=== PATIENT | male | born 1945 | race Caucasian/White ===

== ENCOUNTER 2024-09-10 19:27 | Emergency (ER) | payer MEDICARE, SELFPAY ==
[2024-09-10 19:31] VITALS: BMI 28.2
[2024-09-10 20:12] VITALS: BP 155/82; PULSE 84; RESP 18; TEMP 36.9; O2SAT 96
--- NOTE | 2024-09-10 20:16 | XR_ITS ---
Examination: Hand, right 3 views Technique: Hand AP, oblique, lateral 3 views Date and time of exam: September 10, [id number] hrs. Indications: Spider bite to the hand 4 days ago with redness swelling and pain Findings: Moderate osteopenia No acute fracture No dislocation No cortical bone destruction No opaque foreign body Impression: No fracture or cortical bone destruction
--- NOTE | 2024-09-10 20:17 | PD.EDRME ---
Rapid Medical Screening Exam RME Arrival date/time: 09/10/24 19:27 79 yo m present to Ed for possible spiderbite to hand that gotten worsen I have greeted and performed a focused initial assessment of this patient. A comprehensive ED assessment and evaluation of the patient, analysis of all test results, and completion of the medical decision making process will be conducted by additional ED providers. Chief Complaint: Hand/Wrist Problems Time Seen by Provider: 09/10/24 20:03 Vital signs: Vital Signs Temperature 98.5 F 09/10/24 20:12 Pulse Rate 84 09/10/24 20:12 Respiratory Rate 18 09/10/24 20:12 Blood Pressure 155/82 H 09/10/24 20:12 Pulse Oximetry (%) 96 09/10/24 20:12 Oxygen Delivery Method Room Air 09/10/24 20:12
[2024-09-10 20:56] LABS: Basophils % (Auto) 1 % (0-2.5); Eosinophils # (Auto) 0.1 Thou/mm3 (0.0-0.5); Eosinophils % (Auto) 4 % (0-10); Hematocrit 44.1 % (41.0-53.0); Hemoglobin 15.2 g/dL (13.5-16.0); Immature Granulocytes % (Auto) 1 % (0-0); Immature Granulocytes Auto 0.02 Thou/mm3 (0.00-0.00); Lactate (Lactic Acid) 2.4 mMol/L (0.4-2.0); Lymphocytes % (Auto) 26 % (10-50); Mean Corpuscular HGB Conc 34.5 g/dl (31.0-37.0); Mean Corpuscular Hemoglobin 32.3 pg (25.0-35.0); Mean Corpuscular Volume 94 fL (80-100); Monocytes # (Auto) 0.3 Thou/mm3 (0.0-0.8); Monocytes % (Auto) 8 % (0-12); Neutrophils # (Auto) 2.3 Thou/mm3 (1.8-7.7); Neutrophils % (Auto) 61 % (37-80); Nucleated Red Blood Cell % 0 /100 WBC (0); Platelet Count 90 Thou/mm3 (140-440); RDW Standard Deviation 48.2 fL (35.1-43.9); White Blood Count 3.8 Thou/mm3 (3.8-10.6)
[2024-09-10 21:10] LABS: Sed Rate (ESR) 8 mm/hr (0-20)
[2024-09-10 21:28] VITALS: BP 162/91; PULSE 84; RESP 19; TEMP 36.9; O2SAT 95
[2024-09-10 21:36] LABS: Alanine Aminotransferase 53 U/L (10-49); Albumin, Serum 3.5 gm/dL (3.4-4.8); Albumin/Globulin Ratio 1.4 (1.2-2.2); Alkaline Phosphatase 216 U/L (46-116); Anion Gap 10 (7-16); Aspartate Amino Transferase 58 U/L (0-34); BUN/Creatinine Ratio 15 Ratio (12-20); Bilirubin,Total 0.9 mg/dL (0.3-1.2); Blood Urea Nitrogen 18 mg/dL (9-23); C-Reactive Protein < 0.5 mg/dL (0.0-0.9); Calcium 8.9 mg/dL (8.3-10.6); Calcium (Corrected) 9.3 mg/dL (8.5-10.1); Carbon Dioxide 22.9 mMol/L (20.0-31.0); Chloride 105 mMol/L (98-107); Creatinine (Component) 1.2 mg/dL (0.6-1.3); Estimated Creatinine Clearance 59.5 mL/min (>60); Globulin 2.5 gm/dL (2.3-3.5); Glucose 337 mg/dL (74-106); Osmolality,Calculated 290 (275-295); Potassium 4.1 mMol/L (3.4-5.1); Sodium 138 mMol/L (136-145); eGFR > 60 See Note
[2024-09-10 21:41] LABS: Procalcitonin 0.08 ng/ml (0.0-0.49)
--- NOTE | 2024-09-10 22:01 | PD.EDHAND ---
Upper Extremity Injury RME/HPI General Chief Complaint: Hand/Wrist Problems Stated Complaint: poss infection R hand Time Seen by Provider: 09/10/24 20:03 Arrival date/time: 09/10/24 19:27 RME / HPI RME / HPI narrative: 79-year-old male patient came in for evaluation regarding redness and discoloration right middle finger dorsal aspect. Patient possibly bitten by a spider about 4 days ago and since then patient noticed redness and swelling dorsal aspect of the right third finger. Patient is denying any pain to the palmar aspect of the fingers and hand. Able to bend and extend the finger without any limitation. Patient denies any fever. Patient took leftover ciprofloxacin total of 2 doses already. Denies any other complaints. Related Data Previous Rx's ?Medication ?Instructions ?Recorded ciprofloxacin HCl 500 mg tablet 500 mg PO BID #14 tabs 03/09/23 (Cipro) tamsulosin 0.4 mg capsule (Flomax) 0.4 mg PO QDAY #30 caps 03/09/23 clindamycin HCl 300 mg capsule 300 mg PO TID #21 caps 09/10/24 Allergies Allergy/AdvReac Type Severity Reaction Status Date / Time Penicillins Allergy Severe RASH/HIVES/ Unverified 09/10/24 19:29 Review of Systems Review of Systems Narrative Review of Systems: Review of system reviewed and within normal limits except mentioned in HPI ED Exam Narrative Physical exam: VITAL SIGNS: Reviewed. GENERAL APPEARANCE: Alert and interactive, follows commands, no acute distress, HEAD AND FACE: Non-traumatic. ENT: PERRL, pink conjunctivitis, eyelid no trauma, Mucous membrane moist. NECK: Supple, nontender, no nuchal rigidity. CHEST: No tenderness, no crepitus, no paradoxical movement, no retractions. LUNGS: Clear, well ventilated, symmetric, no rales, no wheezing, no ronchi, no stridor, good breath sounds bilaterally. HEART: Regular rate, regular rhythm, no murmur, no gallops. ABDOMEN: Soft, positive bowel sounds, nondistended, no guarding, nontender, no rebound, no masses, RECTAL: Deferred. GENITAL: Deferred. NEUROLOGICAL: Gross motor function intact sensory function intact, Appropriate for age. MUSCULOSKELETAL: low back nontender, full range of motion. EXTREMITIES: Redness and discoloration right middle finger dorsal aspect involving the macular area. No swelling nonfluctuant, nontender, full range of motion. LYMPHATICS: Deferred. Course Quality Measures none Orders Category Date Time Status IV [Insert IV] STAT Care 09/10/24 20:17 Active XR hand comp RT min 3V Stat Exams 09/10/24 20:16 Completed Blood Culture (Lab) Stat Lab 09/10/24 20:30 Received CBC Stat Lab 09/10/24 20:34 Completed CMP [Comprehensive Metabolic Panel] Stat Lab 09/10/24 20:34 Completed CRP [C-Reactive Protein] Stat Lab 09/10/24 20:34 Completed ESR [Sed Rate (ESR)] Stat Lab 09/10/24 20:34 Completed Lactic Acid [Lactate (Lactic Acid)] Stat Lab 09/10/24 20:34 Results Procalcitonin Stat Lab 09/10/24 20:34 Completed Clindamycin/Ns 600 mg Ivpb [Cleocin/Ns Ivpb] Med 09/10/24 22:00 Discontinued 600 mg in 50 ml IV X1 TET,DIP/PERT AC (Adult)-Tdap [Boostrix Adult (Tdap) Med 09/10/24 22:02 Discontinued Vacc] 0.5 ml IMI .ONCE ONE Vital Signs Vital signs: Vital Signs Temperature 98.5 F 09/10/24 20:12 Pulse Rate 84 09/10/24 20:12 Respiratory Rate 18 09/10/24 20:12 Blood Pressure 155/82 H 09/10/24 20:12 Pulse Oximetry (%) 96 09/10/24 20:12 Oxygen Delivery Method Room Air 09/10/24 20:12 Extremity Injury MDM Narrative MDM Narrative:: 79-year-old male patient came in for evaluation regarding redness and discoloration right middle finger dorsal aspect. Patient possibly bitten by a spider about 4 days ago and since then patient noticed redness and swelling dorsal aspect of the right third finger. Patient is denying any pain to the palmar aspect of the fingers and hand. Able to bend and extend the finger without any limitation. Patient denies any fever. Patient took leftover ciprofloxacin total of 2 doses already. Denies any other complaints. Patient received Boostrix and clindamycin IV in the emergency room. Patient's x-ray of the finger showed no acute abnormality. Patient's CBC also showed no leukocytosis CMP unremarkable lactic acid slightly elevated 2.4. Pro-Ciro is normal Clinically patient can be managed as outpatient, patient was advised to come back in 2 days for reevaluation. Patient data External records reviewed:: None Clinical information provided by:: patient Social determinants that could affect healthcare access:: none Patient has the following chronic illnesses:: None How is presenting disease/condition affected by chronic disease/condition?: no chronic disease Evaluation data The following diagnostics were reviewed and interpreted by me:: lab results, radiology exam(s) and other (specify) Lab and/or radiology exams considered but not ordered:: None Interpretation Summary: See results in MDM Medications / Prescriptions Medications or Prescriptions considered but not ordered:: None Medication administrations:: Medication Administration History Discontinued Medications Diphtheria/Tetanus/Acell Pertussis (Diphth,Pertuss(Acell),Tet Vac 0.5 Ml Syr- Adult) 0.5 ml IMi .ONCE ONE Stop: 09/10/24 22:03 Last Admin: 09/10/24 22:19 Dose: 0.5 ml Documented By: EF Clindamycin/Sodium Chloride (Cleocin/Ns Ivpb) 600 mg in 50 mls @ 100 mls/hr IV X1 ONE Stop: 09/10/24 22:29 Last Admin: 09/10/24 22:13 Dose: 100 mls/hr Documented By: EF Clindamycin and Boostrix Consultations Consultation(s) initiated? (list below): No Diagnosis Upper Extremity Injury Differential Diagnosis: other (Hand cellulitis, spider bite, insect bite) Most likely diagnosis given after review of the tests above:: HAnd cellulitis Admission Indicated Admission indicated?: not indicated Admission Request Was there a request for admission?: No Disposition Plan Disposition Plan: Discharge Discharge Attestation Discharge Attestation: The patient was given an opportunity to ask questions and understood the discharge instructions. Discharge instructions specifically effects, indications for sooner follow up or return to the emergency department, and the expected course of current diagnosis. Patient condition: Stable Discharge Plan Plan Patient Disposition: HOME (Self Care) Disposition Comment: stable Prescriptions/Referrals Prescriptions/Med Rec: New clindamycin HCl 300 mg capsule 300 mg PO TID Qty: 21 0RF No Action tamsulosin [Flomax] 0.4 mg capsule 0.4 mg PO QDAY Qty: 30 1RF ciprofloxacin HCl [Cipro] 500 mg tablet 500 mg PO BID Qty: 14 0RF Referrals: Niecy Kee MD [Primary Care Provider] - In 1 week Problem List Clinical Impression: Cellulitis of hand Patient/Caregiver Discharge Instructions Discharge Activity: activity as tolerated Education Materials: ED Cellulitis Additional Instructions: Thank you for the opportunity for serving you today. You are stable for discharged . You are advised to: Follow-up with your PCP in 1 to 2 days Return to emergency room in 2 days for evaluation Return to ED for worsening of symptoms Increase oral fluids Take medication as prescribed Print Language: [place]orese Stand Alone Forms: Sandra Award Info., Patient Portal Info Letter PA/FUNCTIONAL CONSULTANT Supervising Physician PA/FUNCTIONAL CONSULTANT Supervising Physician: MD Erica
[2024-09-10] MEDS: CLINDAMYCIN/NS 600 MG IVPB 600 MG/50 ML BAG 100 MG IV (22:13)
[2024-09-10] MEDS: DIPHTH,PERTUSS(ACELL),TET VAC 0.5 ML SYR- ADULT IMi (22:19)
[2024-09-10 22:57] VITALS: BP 138/83; PULSE 80; RESP 17; TEMP 36.9; O2SAT 96
[2024-09-10 23:47] LABS: Reflex Lactate? Y
== END 2024-09-10 22:58 | disposition home or self-care (01) ==
PROVIDERS: Physician Assistant; Emergency Provider Emergency Medicine; PCP Internal Medicine
DX: L03.113 Cellulitis of right upper limb (principal)
CPT/HCPCS: 36415; 73130; 80053; 83605; 84145; 85025; 85652; 86140; 87040; 90471; 90715; 96365; 99284; S0077; J0737

== ENCOUNTER → 2024-12-09 | Outpatient (CLI) | payer MEDICARE, BC, SELFPAY ==
[2024-12-09 14:26] LABS: Basophils # (Auto) 0.0 Thou/mm3 (0.0-0.2); Basophils % (Auto) 1 % (0-2.5); Eosinophils # (Auto) 0.1 Thou/mm3 (0.0-0.5); Eosinophils % (Auto) 4 % (0-10); Hematocrit 43.7 % (41.0-53.0); Hemoglobin 15.5 g/dL (13.5-16.0); Immature Granulocytes Auto 0.01 Thou/mm3 (0.00-0.00); Lymphocytes # (Auto) 1.0 Thou/mm3 (1.0-4.8); Lymphocytes % (Auto) 30 % (10-50); Mean Corpuscular HGB Conc 35.5 g/dl (31.0-37.0); Mean Corpuscular Hemoglobin 32.7 pg (25.0-35.0); Mean Corpuscular Volume 92 fL (80-100); Monocytes # (Auto) 0.3 Thou/mm3 (0.0-0.8); Monocytes % (Auto) 9 % (0-12); Neutrophils # (Auto) 1.9 Thou/mm3 (1.8-7.7); Neutrophils % (Auto) 57 % (37-80); Nucleated Red Blood Cell # 0.00 Thou/mm3 (0.00-0.00); Nucleated Red Blood Cell % 0 /100 WBC (0); Platelet Count 93 Thou/mm3 (140-440); RDW Standard Deviation 47.5 fL (35.1-43.9); Red Blood Count 4.74 Miln/mm3 (4.50-5.90); White Blood Count 3.3 Thou/mm3 (3.8-10.6)
[2024-12-09 14:35] LABS: Glucose Estimated Average 237 mg/dL (80-131); Hemoglobin A1C 9.9 % Hgb (4.8-6.0)
[2024-12-09 14:47] LABS: Alanine Aminotransferase 60 U/L (10-49); Albumin, Serum 3.7 gm/dL (3.4-4.8); Albumin/Globulin Ratio 1.4 (1.2-2.2); Alkaline Phosphatase 192 U/L (46-116); Anion Gap 10 (7-16); Aspartate Amino Transferase 66 U/L (0-34); BUN/Creatinine Ratio 15 Ratio (12-20); Bilirubin,Total 1.5 mg/dL (0.3-1.2); Blood Urea Nitrogen 15 mg/dL (9-23); Calcium 8.9 mg/dL (8.3-10.6); Calcium (Corrected) 9.1 mg/dL (8.5-10.1); Carbon Dioxide 26.0 mMol/L (20.0-31.0); Cardiac Risk Estimate 6.1 RATIO (4.0-6.7); Chloride 103 mMol/L (98-107); Cholesterol 243 mg/dL (132-200); Creatinine (Component) 1.0 mg/dL (0.6-1.3); Free T4 (Free Thyroxine) 0.90 ng/dL (0.89-1.76); Globulin 2.7 gm/dL (2.3-3.5); Glucose 291 mg/dL (74-106); HDL Cholesterol 40 mg/dL (40-60); LDL Cholesterol,Calculated 137 mg/dL (0-130); Osmolality,Calculated 289 (275-295); Potassium 4.5 mMol/L (3.4-5.1); Sodium 139 mMol/L (136-145); Thyroid Stimulating Hormone 2.39 uIU/mL (0.55-4.78); Total Protein 6.4 gm/dL (5.7-8.2); Triglycerides 332 mg/dL (30-150); eGFR > 60 See Note
[2024-12-09 15:30] LABS: Hepatitis C Antibody Non Reactive (Non React); Vitamin D 25 Hydroxy Total 23.4 ng/mL (7.3-40.2)
[2024-12-09 15:48] LABS: Creatinine MALB Rnd Ur 126 mg/dL (30-125); Microalbumin, Random Urine < 3 mg/L (0-300)
[2024-12-15 07:06] LABS: PSA, Free 0.25 ng/mL; PSA, Total 0.5 ng/mL (< OR = 4.0)
== END | disposition home or self-care (01) ==
PROVIDERS: PCP Nurse Practitioner Family; Referring Provider Nurse Practitioner Family; Visit Provider Nurse Practitioner Family
DX: E11.65 Type 2 diabetes mellitus with hyperglycemia (principal)
CPT/HCPCS: 36415; 80053; 80061; 82043; 82306; 82570; 83036; 84153; 84154; 84439; 84443; 85025; 86803

== ENCOUNTER → 2025-03-15 | Outpatient (CLI) | payer MEDICARE, BC, SELFPAY ==
[2025-03-15 14:41] LABS: Glucose Estimated Average 243 mg/dL (80-131); Hemoglobin A1C 10.1 % Hgb (4.8-6.0)
== END | disposition home or self-care (01) ==
LOC: COPL 13:33
PROVIDERS: PCP Nurse Practitioner Family; Referring Provider Nurse Practitioner Family; Visit Provider Nurse Practitioner Family
DX: E11.65 Type 2 diabetes mellitus with hyperglycemia (principal)
CPT/HCPCS: 36415; 83036

== ENCOUNTER 2025-03-28 08:56 | Inpatient (IN) | payer MEDICARE, BC, SELFPAY ==
[2025-03-28 08:59] VITALS: BP 147/74; PULSE 80; RESP 18; TEMP 36.5; O2SAT 97
[2025-03-28 09:04] VITALS: PULSE 94; RESP 18; O2SAT 97; BMI 27.5
--- NOTE | 2025-03-28 09:21 | XR_ITS ---
Examination: Left hip AP, lateral, AP pelvis 3 views Technique: Hip AP lateral, AP pelvis, 3 views Exam date and time: March 28, 2025, 0933 hours INDICATIONS: Patient fell yesterday with injury to the hip, hip pain FINDINGS: No acute left hip fracture or hip dislocation Right hip intact Nondisplaced acute appearing fractures left superior and inferior pubic rami IMPRESSION: Recommend CT pelvis follow-up to confirm nondisplaced acute fractures left superior and inferior pubic rami.
--- NOTE | 2025-03-28 09:28 | PD.EDLOWEX ---
Lower Extremity Injury RME/HPI General Stated Complaint: FALL Time Seen by Provider: 03/28/25 09:22 Source: patient Arrival date/time: 03/28/25 08:56 80-year-old male with a history of BPH presents to the emergency room with a chief complaint of left-sided hip pain after ground-level fall that occurred yesterday afternoon. Patient denies any head trauma or injuries anywhere else to the body. Mode of arrival: ambulatory Limitations: no limitations Related Data Previous Rx's ?Medication ?Instructions ?Recorded ciprofloxacin HCl 500 mg tablet 500 mg PO BID #14 tabs 03/09/23 (Cipro) tamsulosin 0.4 mg capsule (Flomax) 0.4 mg PO QDAY #30 caps 03/09/23 clindamycin HCl 300 mg capsule 300 mg PO TID #21 caps 09/10/24 Allergies Allergy/AdvReac Type Severity Reaction Status Date / Time Penicillins Allergy Severe RASH/HIVES/ Verified 03/28/25 09:13 Review of Systems Review of Systems Systems Reviewed: All systems reviewed, normal except as documented Constitutional Constitutional: Reports system reviewed and no additional complaints, except as documented, Denies fatigue, Denies fever(s), Denies headache(s) and Denies weakness Eyes Eyes: Reports system reviewed and no additional complaints, except as documented, Denies blurry vision and Denies change in vision ENT Ears, Nose, Mouth, and Throat: Reports system reviewed and no additional complaints, except as documented, Denies otalgia, Denies headache(s), Denies nasal congestion, Denies throat swelling and Denies vertigo Cardiovascular Cardiovascular: Reports system reviewed and no additional complaints, except as documented, Denies chest pain, Denies dyspnea and Denies dyspnea on exertion Respiratory Respiratory: Reports system reviewed and no additional complaints, except as documented, Denies chest congestion, Denies cough, Denies dyspnea, Denies dyspnea on exertion and Denies wheezing Gastrointestinal Gastrointestinal: Reports system reviewed and no additional complaints, except as documented, Denies abdominal pain, Denies cramping, Denies nausea and Denies vomiting Genitourinary Genitourinary: Reports system reviewed and no additional complaints, except as documented, Denies dysuria and Denies hematuria Musculoskeletal Musculoskeletal: Reports system reviewed and no additional complaints, except as documented, Reports arthralgias, Denies back pain, Reports joint swelling and Reports limited range of motion Integumentary/Breasts Skin/Breast: Reports system reviewed and no additional complaints, except as documented and Denies wounds Neurologic Neurologic: Reports system reviewed and no additional complaints, except as documented, Denies confusion, Denies headache(s), Denies lack of coordination, Denies vertigo and Denies weakness Psychiatric Psychiatric: Reports system reviewed and no additional complaints, except as documented, Denies anxiety, Denies confusion, Denies depression, Denies paranoia, Denies suicidal ideation and Denies tactile hallucinations Endocrine Endocrine: Reports system reviewed and no additional complaints, except as documented and Denies fatigue Hematologic/Lymphatic Hematologic/Lymphatic: Reports system reviewed and no additional complaints, except as documented and Denies lymphadenopathy Allergic/Immunologic Allergic/Immunologic: Reports system reviewed and no additional complaints, except as documented, Denies throat swelling, Denies urticaria and Denies wheezing ED Exam General Limitations: Present no limitations General appearance: Present alert and in no apparent distress Head Head exam: Present atraumatic Eye Eye exam: Present normal appearance, PERRL and EOMI ENT ENT exam: Present normal exam, normal oropharynx and mucous membranes moist Neck Neck exam: Present normal inspection, full ROM and trachea midline Chest Chest inspection: Present normal inspection and symmetric chest wall rise Respiratory Respiratory exam: Present normal lung sounds bilaterally Cardiovascular Cardiovascular exam: Present regular rate, normal rhythm and normal heart sounds Abdominal Exam Abdominal exam: Present soft and normal bowel sounds Extremities Exam Extremities exam: Present normal inspection and full ROM Expanded Lower Extremity Exam Hip/Pelvis exam: Present tenderness; Absent full ROM, swelling, crepitus, external rotation, internal rotation or pelvis stable Upper leg exam: Present normal inspection Knee exam: Present normal inspection Lower leg exam: Present normal inspection Ankle exam: Present normal inspection Gait: unable to bear weight Back Exam Back exam: Present normal inspection and full ROM Neurological Exam Neurological exam: Present alert, oriented X3 and CN II-XII intact Psychiatric Psychiatric exam: Present normal affect and normal mood Skin Skin exam: Present warm, dry, intact and normal color Course Quality Measures none Orders Category Date Time Status COVID-19 Screening Questionnaire NOW Care 03/28/25 15:36 Active Decision to Admit X1 Care 03/28/25 15:36 Active Consult to Orthopedic Stat Cons 03/28/25 15:[address] hip LT wo con Stat Exams 03/28/25 11:01 Completed XR hip LT w pelvis 2-3V Stat Exams 03/28/25 09:21 Completed CBC Stat Lab 03/28/25 14:32 Completed CMP [Comprehensive Metabolic Panel] Stat Lab 03/28/25 14:32 Completed PT [Prothrombin Time with INR] Stat Lab 03/28/25 14:32 Received PTT [Partial Thromboplastin Time] Stat Lab 03/28/25 14:32 Received Ketorolac Inj [Toradol Inj] Med 03/28/25 09:21 Discontinued 30 mg IM X1 ONE Vital Signs Vital signs: Vital Signs Temperature 97.7 F 03/28/25 08:59 Pulse Rate 80 03/28/25 08:59 Respiratory Rate 18 03/28/25 08:59 Blood Pressure 147/74 H 03/28/25 08:59 Pulse Oximetry (%) 97 03/28/25 08:59 Oxygen Delivery Method Room Air 03/28/25 08:59 Extremity Injury, Lower MDM Narrative MDM Narrative:: 80-year-old male with a history of BPH presents to the emergency room with a chief complaint of left-sided hip pain after ground-level fall that occurred yesterday afternoon. Patient denies any head trauma or injuries anywhere else to the body. Patient is hemodynamically stable and in no apparent distress Physical examination shows tenderness and pain to the patient's left groin area. Patient states he fell on his left hip and now he is having pain and tenderness to the inner pelvic area. Patient denies any point tenderness to the hip. Patient is unable to walk or bear any weight on his injury. Patient lives alone at home. CT of the left hip was completed and shows an acute nondisplaced fracture of the left superior and inferior pubic rami. No hip fracture. Dr. Jaeger the realty loan specialist on-call was consulted states no surgery is needed, no abdominal binder is needed, that the patient will need physical therapy. Dr. Bentley from the hospitalist team was consulted and the patient will be admitted Patient data External records reviewed:: [facility] previous records Clinical information provided by:: patient Social determinants that could affect healthcare access:: none Patient has the following chronic illnesses:: No chronic illness How is presenting disease/condition affected by chronic disease/condition?: no chronic disease Evaluation data The following diagnostics were reviewed and interpreted by me:: lab results and radiology exam(s) Lab and/or radiology exams considered but not ordered:: Labs and radiology exams considered and ordered Interpretation Summary: CT left hip-Findings: Normal appendix 30 mm umbilical hernia No pelvic hematoma Urinary bladder intact Acute nondisplaced fractures left superior left inferior pubic rami Hips are intact Sacral segments and visualized lumbar vertebral bodies intact IMPRESSION: Acute nondisplaced fractures left superior and inferior pubic rami No hip fractures Medications / Prescriptions Medications or Prescriptions considered but not ordered:: Medication given Medication administrations:: Medication Administration History Discontinued Medications Ketorolac Tromethamine (Ketorolac Inj 30 Mg/Ml Vial) 30 mg IM X1 ONE Stop: 03/28/25 09:22 Last Admin: 03/28/25 09:31 Dose: 30 mg Documented By: VL Medication given Consultations Consultation(s) initiated? (list below): Yes Consultation #1 (Physician, Specialty, Details): Dr. Jaeger, realty loan specialist on-call Diagnosis Extremity Injury, Lower Differential Diagnosis: other (Hip fracture/hip contusion/acute fracture of the inferior pubic rami) Most likely diagnosis given after review of the tests above:: Acute nondisplaced fracture of the left superior and inferior pubic rami Admission Indicated Admission indicated?: indicated Admission Request Was there a request for admission?: Yes Admission Attestation Admission request attestation: Discussed case with [Dr. Bentley] from Hospitalist service regarding admission. Discussed patients ED course, exam findings, labs, and radiology results. The Hospitalist [agrees,declines] to accept the patient for admission. Disposition Plan Disposition Plan: Admit Discharge Plan Plan Patient Disposition: Admit Acute Care w/in Hospital Discharge Disposition comment: Stable Prescriptions/Referrals Prescriptions/Med Rec: No Action tamsulosin [Flomax] 0.4 mg capsule 0.4 mg PO QDAY Qty: 30 1RF ciprofloxacin HCl [Cipro] 500 mg tablet 500 mg PO BID Qty: 14 0RF clindamycin HCl 300 mg capsule 300 mg PO TID Qty: 21 0RF Referrals: Jeane Hahn FNP [Primary Care Provider] - In 1 week Problem List Clinical Impression: Fracture of superior pubic ramus, Fracture of inferior pubic ramus Patient/Caregiver Discharge Instructions Print Language: Luxembourger Stand Alone Forms: Sandra Award Info., Patient Portal Info Letter
[2025-03-28] MEDS: KETOROLAC INJ 30 MG/ML VIAL IM (09:31)
--- NOTE | 2025-03-28 11:01 | XR_ITS ---
Examination: CT left hip, without contrast. CT pelvis without intravenous contrast 2-D sagittal reconstructions. 2-D coronal reconstructions. 3-D reconstructions. Date and time of exam: March 28, 2025, 11:43 a.m. INDICATIONS: Patient fell today with injury to the hip, left hip pain CTDI: vol (mGy): 8.54 DLP: (mGycm): 343 Technique: Multiple 1.25 mm axial sections of the pelvis left hip have been obtained. 2-D sagittal and coronal reconstructions have been obtained. 3-D reconstructions have been obtained. Low dose protocols were performed. One or more of the following dose reduction techniques were used; automated exposure control, adjustment of the mA and/or KV according to patient size, use of iterative reconstruction technique. Findings: Normal appendix 30 mm umbilical hernia No pelvic hematoma Urinary bladder intact Acute nondisplaced fractures left superior left inferior pubic rami Hips are intact Sacral segments and visualized lumbar vertebral bodies intact IMPRESSION: Acute nondisplaced fractures left superior and inferior pubic rami No hip fractures
[2025-03-28 15:00] LABS: Basophils # (Auto) 0.0 Thou/mm3 (0.0-0.2); Basophils % (Auto) 1 % (0-2.5); Eosinophils # (Auto) 0.1 Thou/mm3 (0.0-0.5); Eosinophils % (Auto) 1 % (0-10); Hematocrit 46.9 % (41.0-53.0); Hemoglobin 15.8 g/dL (13.5-16.0); Immature Granulocytes Auto 0.02 Thou/mm3 (0.00-0.00); Lymphocytes # (Auto) 0.9 Thou/mm3 (1.0-4.8); Lymphocytes % (Auto) 17 % (10-50); Mean Corpuscular HGB Conc 33.7 g/dl (31.0-37.0); Mean Corpuscular Hemoglobin 32.4 pg (25.0-35.0); Mean Corpuscular Volume 96 fL (80-100); Monocytes # (Auto) 0.4 Thou/mm3 (0.0-0.8); Monocytes % (Auto) 8 % (0-12); Neutrophils # (Auto) 3.8 Thou/mm3 (1.8-7.7); Neutrophils % (Auto) 73 % (37-80); Nucleated Red Blood Cell # 0.00 Thou/mm3 (0.00-0.00); Nucleated Red Blood Cell % 0 /100 WBC (0); Platelet Count 111 Thou/mm3 (140-440); RDW Standard Deviation 50.4 fL (35.1-43.9); Red Blood Count 4.87 Miln/mm3 (4.50-5.90); White Blood Count 5.3 Thou/mm3 (3.8-10.6)
[2025-03-28 15:18] LABS: Alanine Aminotransferase 70 U/L (10-49); Albumin, Serum 4.1 gm/dL (3.4-4.8); Albumin/Globulin Ratio 1.6 (1.2-2.2); Alkaline Phosphatase 198 U/L (46-116); Anion Gap 10 (7-16); Aspartate Amino Transferase 79 U/L (0-34); BUN/Creatinine Ratio 23 Ratio (12-20); Bilirubin,Total 2.8 mg/dL (0.3-1.2); Blood Urea Nitrogen 18 mg/dL (9-23); Calcium 9.0 mg/dL (8.3-10.6); Calcium (Corrected) 9.0 mg/dL (8.5-10.1); Carbon Dioxide 26.2 mMol/L (20.0-31.0); Chloride 101 mMol/L (98-107); Creatinine (Component) 0.8 mg/dL (0.6-1.3); Estimated Creatinine Clearance 80.8 mL/min (>60); Globulin 2.5 gm/dL (2.3-3.5); Glucose 305 mg/dL (74-106); Osmolality,Calculated 286 (275-295); Potassium 4.7 mMol/L (3.4-5.1); Sodium 137 mMol/L (136-145); Total Protein 6.6 gm/dL (5.7-8.2); eGFR > 60 See Note
[2025-03-28 15:54] LABS: INR 1.1 (0.9-1.3); Partial Thromboplastin Time 27.1 Seconds (22.0-36.0); Prothrombin Time 12.0 Seconds (9.0-12.2)
--- NOTE | 2025-03-28 16:37 | PD.RESHP ---
Documentation for date of: 03/28/25 HPI History of Present Illness Chief complaint: fall History of present illness: 80-year-old male with past medical history of DM2, MS, cirrhosis, splenomegaly, and IBS was admitted to the hospital on 03/28/2025 for to come to the ED with chief complaints of ground-level fall yesterday in the morning after he tripped with some on his door on the floor. He mentioned that he tripped in the send and fell to his left-sided hip. Stated that immediately after the fall he had a sharp pain in the pelvic area, but was able to immediately get up and reach to a sofa that was nearby. He afterwards got into a golf cart and went back home and his nephew helped him get inside the house. He stated that he can bear weight on his right lower extremity, but unable to bear weight on his left lower extremity. Stated that yesterday he did have some pressure with urinating, but that today he has been peeing okay and has not have any incontinence otherwise. He denies any chest pain, shortness of breath, abdominal pain, diarrhea, or loss of consciousness. Patient lives alone in his house and has no help in his house at this time. ED course: Initially came in afebrile and mildly hypertensive. Initial labs were fairly unremarkable except for some elevated T bilirubin at 2.8 (previous was 1.5), and transaminitis. Initial hip/pelvis x-ray showed nondisplaced fracture of the left superior and inferior pubic rami and confirmed by hip CT. ED spoke with orthopedic surgeon who stated patient did not need any surgical intervention or abdominal binder at this time PMH: DM2, MS, cirrhosis, splenomegaly, and IBS Social Hx: Denies any drugs, alcohol, smoking Medications: Trulicity Allergies: Penicillin Review of Systems Review of Systems Systems Reviewed: All systems reviewed, normal except as documented Past Medical History Past Medical History Comments PMH COMMENT: PMH: DM2, MS, cirrhosis, splenomegaly, and IBS Social Hx: Denies any drugs, alcohol, smoking Medications: Trulicity Allergies: Penicillin Exam Vital Signs Temp Pulse Resp BP Pulse Ox O2 Del Method 97.7 F 80 18 147/74 H 97 Room Air 03/28/25 08:59 03/28/25 08:59 03/28/25 08:59 03/28/25 08:59 03/28/25 08:59 03/28/25 08:59 Narrative Exam General: A/O x3, no acute distress Eyes: PERRL, EOMI. Anicteric, vision grossly intact. Ears: No ear pain, no ear discharge, Hearing grossly intact. Nose: No nasal discharge. Mouth/Throat: Moist mucous membranes, no redness, no lesions. Neck: Neck supple, non-tender, no cervical lymphadenopathy. Lungs: Clear CAROL to auscultation and percussion, No accessory muscle use. Cardio: Normal S1/S2, regular rhythm, no murmurs, no JVD or carotid bruits. Abdomen: Soft, non-tender, no palpable masses, peristalsis present, no guarding or rebound. Extremities: Symmetrical, no significant deformities, 1+ peripheral edema , non-tender, peripheral pulses presents, LLE pain with motion. Skin: No rashes, no lesions, warm to touch. Neuro: No focal neurological deficits. motor and sensory intact Psych: Cooperative, appropriate mood and effect. Results: Labs 03/29/25 05:11 03/29/25 05:11 Labs: Short CBC 03/28/25 Range/Units 14:32 WBC 5.3 (3.8-10.6) Thou/mm3 Hgb 15.8 (13.5-16.0) g/dL Hct 46.9 (41.0-53.0) % Plt Count 111 L (140-440) Thou/mm3 BMP 03/28/25 14:32 Sodium 137 Potassium 4.7 Chloride 101 Carbon Dioxide 26.2 BUN 18 Creatinine 0.8 Glucose 305 H Calcium 9.0 Liver Function 03/28/25 Range/Units 14:32 Total Bilirubin 2.8 H (0.3-1.2) mg/dL AST 79 H (0-34) U/L ALT 70 H (10-49) U/L Alkaline Phosphatase 198 H (46-116) U/L Albumin 4.1 (3.4-4.8) gm/dL Quality Measures Quality Measures none Advance care planning discussed with:: patient Medications Home Medications and Allergies Home Medications ?Medication ?Instructions ?Recorded ?Confirmed ?Type dulaglutide 1.5 mg/0.5 mL 1.5 mg subcut .weekly 03/28/25 03/28/25 History subcutaneous pen injector (Trulicity) Allergies Allergy/AdvReac Type Severity Reaction Status Date / Time Penicillins Allergy Severe RASH/HIVES/ Verified 03/28/25 09:13 Visit Medications Acetaminophen (Acetaminophen 325 Mg Tablet) 650 mg PO Q6H PRN PRN Reason: Fever >100.4 and mild pain 1-3 Stop: 04/27/25 16:32 Hydrocodone Bitart/Acetaminophen (Hydrocodone/Apap 5/325 Tablet) 1 tab PO Q4HR PRN PRN Reason: PAIN SCALE 4-6 (Moderate Stop: 04/02/25 16:32 Dextrose (Dextrose 50%-Water Inj 50 Ml Syringe) 25 ml IV Q15MIN PRN PRN Reason: BG 50-70 responsive npo pt Stop: 04/27/25 16:32 Dextrose (Dextrose 50%-Water Inj 50 Ml Syringe) 50 ml IV Q15MIN PRN PRN Reason: BG <50 OR BG <70 & pt unresponsive Stop: 04/27/25 16:32 Glucagon (Glucagon Inj 1 Mg Vial) 1 mg IM Q15MIN PRN PRN Reason: BG <70, and no IV access Heparin Sodium (Porcine) (Heparin Sod Inj 5000 Unit/Ml Vial) 5,000 unit SC Q8HR IMAN Stop: 04/11/25 21:59 Insulin Human Lispro (Insulin Lispro (Admelog) 1 Unit/0.01 Ml Unit) 0 unit SC AC IMAN; Protocol Stop: 04/27/25 16:59 Morphine Sulfate (Morphine Sulf Inj 4 Mg/Ml Vial) 2 mg IVP Q3H PRN PRN Reason: PAIN SCALE 7-10 (Severe Stop: 04/02/25 16:32 Ondansetron HCl (Ondansetron Inj 2 Mg/Ml Inj 2 Ml) 4 mg IVP Q6H PRN; Protocol PRN Reason: NAUSEA OR VOMITING Stop: 04/27/25 16:32 Discontinued Medications Ketorolac Tromethamine (Ketorolac Inj 30 Mg/Ml Vial) 30 mg IM X1 ONE Stop: 03/28/25 09:22 Last Admin: 03/28/25 09:31 Dose: 30 mg Assessment & Plan Plan 80-year-old male with past medical history of DM2, MS, cirrhosis, splenomegaly, and IBS was admitted to the hospital on 03/28/2025 for acute nondisplaced pubic fracture s/p mechanical ground-level fall. #Acute nondisplaced pubic fracture #Mechanical ground-level fall Patient came in due to a ground-level fall yesterday and inability to bear weight on the left lower extremity. Hip x-ray and hip CT confirmed nondisplaced left superior and inferior pubic rami fracture. Orthopedic surgeon stated no need for surgery or abdominal binder at this time only PT Plan: Pain medications with Tylenol, Hext, and morphine PT ordered Orthopedic surgery consulted, appreciate recommendations Patient will need SNF upon discharge Chronic diseases: DM 2 Cirrhosis IBS Splenomegaly Plan: A1c for morning labs ISS Carb consistent diet and lactose-free Disposition: Patient admitted to [facility] for pubic fracture. Diet: carb cons and lactose free GI prophylaxis: not indicated DVT prophylaxis: Heparin SC Code: DNR Case disclosed with Attending Dr. Vilma Mcclellan PGY2 Disclaimer: Even though this this note was dictated by speech recognition and even though it was carefully revised there may still be minor errors in vice president of academic affairs due to voice recognition software. Attending Provider Attestation/Addendum I, Shakira Esparza DO, attest that I was physically present for the andrews portions of the service and evaluated the patient with the resident and I reviewed and discussed the case with the resident and agree with the resident's findings and plans of care as documented above Patient is an 80-year-old male with past medical history of type 2 diabetes, MS in remission, IBS who presents to the ED with pain in his pelvis after sustaining a fall at home. Patient states that he had tripped by the door and fell on the floor. He stated that he was unable to move his legs without significant pain, but somehow was able to get into his golf cart and call his neighbor for help. Patient denies head trauma or loss of consciousness. Due to persistent pain, patient was brought to the ED. CT hip was done showing acute nondisplaced fractures of left superior and inferior pubic rami. Patient noted to have elevated bilirubin of 2.8, AST 79, ALT 70 and Alk Phos of 198. Blood glucose noted to be 305. Patient complains of pain, but is neurologically intact. Gross sensation is intact, no bowel or bladder incontinence. Ortho was called from ED, states patient does not need any surgery, but PT. Will admit patient for pelvic fracture. Will order pain control PRN and order PT. Patient will likely need SNF placement as he lives at home alone.
[2025-03-28 17:05] VITALS: BP 160/70; PULSE 72; RESP 18; TEMP 37; O2SAT 98
[2025-03-28] MEDS: INSULIN LISPRO (AdmeLOG) 1 UNIT/0.01 ML UNIT SC (18:10)
--- NOTE | 2025-03-28 18:29 | PC.NURSE ---
Hand off report given to Merna ADAMS from med surg. Patient is aware of admission to floor. Pt denies any pain at this time but states if he needs to turn he will probably feel alot of pain. VSS. All belongins gathered and sent with patient.
[2025-03-28 18:40] VITALS: BMI 27.5
[2025-03-28 20:00] VITALS: BP 133/77; PULSE 75; RESP 18; TEMP 36.7; O2SAT 95
[2025-03-28] MEDS: HYDROcodone/APAP 5/325 TABLET 1 TAB PO (20:20)
[2025-03-28] MEDS: HEPARIN SOD INJ 5000 UNIT/ML VIAL SC (21:05)
[2025-03-29] VITALS (10 sets, daily range): BP systolic 112–140; BP diastolic 59–73; PULSE 74–95; RESP 18–95; TEMP 36.6–36.9; O2SAT 93–97; BMI 12.0
[2025-03-29] MEDS: HEPARIN SOD INJ 5000 UNIT/ML VIAL SC ×3 (05:29→21:28)
[2025-03-29 05:45] LABS: Basophils # (Auto) 0.0 Thou/mm3 (0.0-0.2); Basophils % (Auto) 1 % (0-2.5); Eosinophils # (Auto) 0.2 Thou/mm3 (0.0-0.5); Eosinophils % (Auto) 4 % (0-10); Hematocrit 40.2 % (41.0-53.0); Hemoglobin 13.9 g/dL (13.5-16.0); Immature Granulocytes Auto 0.02 Thou/mm3 (0.00-0.00); Lymphocytes # (Auto) 1.2 Thou/mm3 (1.0-4.8); Lymphocytes % (Auto) 29 % (10-50); Mean Corpuscular HGB Conc 34.6 g/dl (31.0-37.0); Mean Corpuscular Hemoglobin 34.0 pg (25.0-35.0); Mean Corpuscular Volume 98 fL (80-100); Monocytes # (Auto) 0.4 Thou/mm3 (0.0-0.8); Monocytes % (Auto) 11 % (0-12); Neutrophils # (Auto) 2.2 Thou/mm3 (1.8-7.7); Neutrophils % (Auto) 55 % (37-80); Nucleated Red Blood Cell # 0.00 Thou/mm3 (0.00-0.00); Nucleated Red Blood Cell % 0 /100 WBC (0); Platelet Count 95 Thou/mm3 (140-440); RDW Standard Deviation 51.6 fL (35.1-43.9); Red Blood Count 4.09 Miln/mm3 (4.50-5.90); White Blood Count 4.1 Thou/mm3 (3.8-10.6)
[2025-03-29 06:19] LABS: Glucose Estimated Average 229 mg/dL (80-131); Hemoglobin A1C 9.6 % Hgb (4.8-6.0)
[2025-03-29 06:29] LABS: Alanine Aminotransferase 55 U/L (10-49); Albumin, Serum 3.3 gm/dL (3.4-4.8); Albumin/Globulin Ratio 1.5 (1.2-2.2); Alkaline Phosphatase 162 U/L (46-116); Anion Gap 10 (7-16); Aspartate Amino Transferase 64 U/L (0-34); BUN/Creatinine Ratio 19 Ratio (12-20); Bilirubin,Total 1.9 mg/dL (0.3-1.2); Blood Urea Nitrogen 17 mg/dL (9-23); Calcium 8.3 mg/dL (8.3-10.6); Calcium (Corrected) 8.9 mg/dL (8.5-10.1); Carbon Dioxide 24.9 mMol/L (20.0-31.0); Chloride 103 mMol/L (98-107); Creatinine (Component) 0.9 mg/dL (0.6-1.3); Estimated Creatinine Clearance 71.9 mL/min (>60); Globulin 2.2 gm/dL (2.3-3.5); Glucose 254 mg/dL (74-106); Magnesium 1.8 mg/dL (1.6-2.6); Osmolality,Calculated 286 (275-295); Potassium 4.6 mMol/L (3.4-5.1); Sodium 138 mMol/L (136-145); Total Protein 5.5 gm/dL (5.7-8.2); eGFR > 60 See Note
[2025-03-29] MEDS: HYDROcodone/APAP 5/325 TABLET 1 TAB PO ×2 (06:30→10:52)
[2025-03-29] MEDS: INSULIN LISPRO (AdmeLOG) 1 UNIT/0.01 ML UNIT SC ×3 (07:39→17:50)
--- NOTE | 2025-03-29 09:15 | PC.SS ---
SS follow up note; Patient Dawit Singer is a 80 Year old male admitted for Pelvic Fracture S/P fall. SS met with patient at bedside to discuss discharge Plan and verify demographic information. Patient reports he lives at home alone. Prior to admission patient was able to complete all ADL's independently. Patient reports he did utilize a cane to assist with ambulation. Patient reports his son, Kendrick Singer is his surrogate decision maker, . PCP is Eugenia Hahn. SS inquired about SNF placement and he informed SS that he did not have a choice and was not aware of any facilities and informed SS to choose for him, SS informed patient that SS could not assist with deciding for patient. At the time, Lisa from [facility] was at [facility] and SS asked Lisa if she could Meet with patient. Patient agreeable. Patient agreeable to discharge to [facility] once he completes his 3 midnights. SS will need to arrange transportation for patient. Discharge Plan: [facility] Next of Kin: Kendrick Singer,
--- NOTE | 2025-03-29 09:25 | PC.SS ---
SS follow up note; SS sent SNF referral through [employer]. [facility] and accepted the patient. SS informed [facility] that the patient might not meet inpatient criteria. [facility] acknowledged this information and confirmed they are still willing to accept the patient. [facility]da from [facility] stated that as long as the face-sheet indicates Inpatient the patient will qualify for admission, however patient must meet 3 midnights to qualify. SS will stand by for further needs.
[2025-03-29] MEDS: Magnesium Sulfate 2 GM Ivpb 2 GM/50 ML BAG IV (09:32)
[2025-03-29] MEDS: INSULIN DEGLUDEC 5 UNIT/0.05 ML (PER 5 UNITS) SC (10:54)
--- NOTE | 2025-03-29 12:55 | ESPR_ITS ---
<Statement entered by Ed Mcclellan MD - 03/29/25 13:54> I have reviewed the note and agree with the resident's assessment & plan with exceptions as below. I have personally reviewed labs, imaging, home meds/prior records, examined the patient, formulated and discussed management plan with my attending Patient was seen and examined at bedside this morning. No acute overnight events. States that if he is in bed his pain is not exacerbated, but if he tries to move or bear weight on his left leg that he gets like muscle cramping in his left lower extremity therefore we will start patient on cyclobenzaprine. Blood sugars were also elevated therefore we will start regular 5 units. Will need longterm facility as per PT. Ed Mcclellan PGY2 Disclaimer: Even though this this note was dictated by speech recognition and even though it was carefully revised there may still be minor errors in lingo cleaner due to voice recognition software. Documentation for date of: 03/29/25 Subjective Subjective Interval history: Patient was seen and examined at bedside; no acute events overnight. Patient said that he has significant pain with motion that is mostly musculoskeletal and issues with weightbearing on left. Waiting on PT consult. Patient's morning glucose was 254 was started on insulin degludec 5. Exam Vital Signs Temp Pulse Resp BP Pulse Ox O2 Del Method O2 Flow Rate 98.4 F 86 20 121/62 93 L Room Air 98 03/29/25 11:35 03/29/25 11:35 03/29/25 11:35 03/29/25 11:35 03/29/25 11:35 03/29/25 11:35 03/29/25 04:00 Narrative Exam General: A/O x3, no acute distress Eyes: PERRL, EOMI. Anicteric, vision grossly intact. Ears: No ear pain, no ear discharge, Hearing grossly intact. Nose: No nasal discharge. Mouth/Throat: Moist mucous membranes, no redness, no lesions. Neck: Neck supple, non-tender, no cervical lymphadenopathy. Lungs: Clear CAROL to auscultation and percussion, No accessory muscle use. Cardio: Normal S1/S2, regular rhythm, no murmurs, no JVD or carotid bruits. Abdomen: Soft, non-tender, no palpable masses, peristalsis present, no guarding or rebound. Extremities: Symmetrical, no significant deformities, trace peripheral edema , non-tender, peripheral pulses presents, LLE pain with motion but not on palpation. Skin: No rashes, no lesions, warm to touch. Neuro: No focal neurological deficits. motor and sensory intact Psych: Cooperative, appropriate mood and effect. Objective Labs 03/30/25 05:44 03/30/25 05:44 Labs: Laboratory Results - last 24 hr 03/28/25 03/29/25 14:32 05:11 WBC 5.3 4.1 RBC 4.87 4.09 L Hgb 15.8 13.9 Hct 46.9 40.2 L MCV 96 98 MCH 32.4 34.0 MCHC 33.7 34.6 RDW Std Deviation 50.4 H 51.6 H Plt Count 111 L 95 L Neut % (Auto) 73 55 Lymph % (Auto) 17 29 [place] % (Auto) 8 11 Eos % (Auto) 1 4 Baso % (Auto) 1 1 Neut # (Auto) 3.8 2.2 Lymph # (Auto) 0.9 L 1.2 [place] # (Auto) 0.4 0.4 Eos # (Auto) 0.1 0.2 Baso # (Auto) 0.0 0.0 Immature Gran # (Auto) 0.02 H 0.02 H Absolute Nucleated RBC 0.00 0.00 Immature Gran % 0 1 H Nucleated RBC % 0 0 PT 12.0 INR 1.1 APTT 27.1 Sodium 137 138 Potassium 4.7 4.6 Chloride 101 103 Carbon Dioxide 26.2 24.9 Anion Gap 10 10 BUN 18 17 Creatinine 0.8 0.9 Estim Creat Clear Calc 80.8 71.9 eGFR > 60 > 60 BUN/Creatinine Ratio 23 H 19 Glucose [address] Glu mg/dL 229 H Hemoglobin A1c 9.6 H Calculated Osmolality 286 286 Calcium 9.0 8.3 Corrected Calcium 9.0 8.9 Magnesium 1.8 Total Bilirubin 2.8 H 1.9 H D AST 79 H 64 H ALT 70 H 55 H Alkaline Phosphatase 198 H 162 H D Total Protein 6.6 5.5 L Albumin 4.1 3.3 L D Globulin 2.5 2.2 L Albumin/Globulin Ratio 1.6 1.5 Quality Measures Quality Measures none Advance care planning discussed with:: other Assessment & Plan Assessment Current Active Medications: Generic Name Dose Route Start Last Admin Trade Name Familiaq PRN Reason Stop Dose Admin Acetaminophen 650 mg 03/28/25 16:33 Acetaminophen 325 Mg Tablet PO 04/27/25 16:32 Q6H PRN Fever >100.4 and mild pain 1-3 Hydrocodone Bitart/Acetaminophen 1 tab 03/28/25 16:33 03/29/25 10:52 Hydrocodone/Apap 5/325 Tablet PO 04/02/25 16:32 1 tab Q4HR PRN Administration PAIN SCALE 4-6 (Moderate Cyclobenzaprine HCl 5 mg 03/29/25 10:46 Cyclobenzaprine 5 Mg Tablet PO 04/28/25 10:45 TID PRN MUSCLE SPASMS Dextrose 25 ml 03/28/25 16:33 Dextrose 50%-Water Inj 50 Ml Syringe IV 04/27/25 16:32 Q15MIN PRN BG 50-70 responsive npo pt Dextrose 50 ml 03/28/25 16:33 Dextrose 50%-Water Inj 50 Ml Syringe IV 04/27/25 16:32 Q15MIN PRN BG <50 OR BG <70 & pt unresponsive Glucagon 1 mg 03/28/25 16:33 Glucagon Inj 1 Mg Vial IM Q15MIN PRN BG <70, and no IV access Heparin Sodium (Porcine) 5,000 unit 03/28/25 22:00 03/29/25 05:29 Heparin Sod Inj 5000 Unit/Ml Vial SC 04/11/25 21:59 5,000 unit Q8HR IMAN Administration Insulin Degludec 5 unit 03/29/25 10:45 03/29/25 10:54 Insulin Degludec 5 Unit/0.05 Ml (Per 5 Units) SC 04/28/25 10:44 5 unit QDAY IMAN Administration Insulin Human Lispro 0 unit 03/28/25 17:00 03/29/25 12:27 Insulin Lispro (Admelog) 1 Unit/0.01 Ml Unit SC 04/27/25 16:59 3 unit AC IMAN Administration Protocol Morphine Sulfate 2 mg 03/28/25 16:33 Morphine Sulf Inj 4 Mg/Ml Vial IVP 04/02/25 16:32 Q3H PRN PAIN SCALE 7-10 (Severe Ondansetron HCl 4 mg 03/28/25 16:33 Ondansetron Inj 2 Mg/Ml Inj 2 Ml IVP 04/27/25 16:32 Q6H PRN NAUSEA OR VOMITING Protocol Plan 80-year-old male with past medical history of DM2, MS, cirrhosis, splenomegaly, and IBS was admitted to the hospital on 03/28/2025 for acute nondisplaced pubic fracture s/p mechanical ground-level fall. #Acute nondisplaced pubic fracture #Mechanical ground-level fall Patient came in due to a ground-level fall yesterday and inability to bear weight on the left lower extremity. Hip x-ray and hip CT confirmed nondisplaced left superior and inferior pubic rami fracture. Orthopedic surgeon stated no need for surgery or abdominal binder at this time only PT Plan: Pain medications with Tylenol, [place], cyclobenzaprine, and morphine PT consulted, thank you for recommendations-rehab for skilled therapy services to achieve highest level of functional mobility; patient currently has decline in bed mobility transfers and ambulation and is currently a high fall risk Patient will need SNF upon discharge Chronic diseases: DM 2 Cirrhosis IBS Splenomegaly Plan: ISS and insulin degludec 5 secondary to 9.6 and morning glucose 254 Carb consistent diet and lactose-free Disposition: Med-Surg DVT prophylaxis: Heparin 5000 subcu every 8 hours GI prophylaxis: Diet: Carbohydrate consistent and lactose-free Lines: PIV CODE STATUS: DNR This case was discussed with my attending physician, Dr. Esparza, and senior resident, Dr. Bentley. Golden De Paz MD-PhD, PGY1 Attending Provider Attestation/Addendum Catina, Shakira Esparza, , attest that I was physically present for the andrews portions of the service and evaluated the patient with the resident and I reviewed and discussed the case with the resident and agree with the resident's findings and plans of care as documented above Patient seen and evaluated this a.m. He states that he is in a lot of pain after he had work with physical therapy. He otherwise has no acute complaints. Continue with pain control PRN. Patient reports soreness on palpation of left hip region. He describes it has muscle aches. Flexeril PRN has been added
[2025-03-29] MEDS: TAMSULOSIN HCL 0.4 MG CAPSULE PO (15:21)
[2025-03-30] VITALS (7 sets, daily range): BP systolic 105–141; BP diastolic 58–72; PULSE 78–89; RESP 17–96; TEMP 36.3–36.8; O2SAT 92–96; BMI 11.0
[2025-03-30] MEDS: HEPARIN SOD INJ 5000 UNIT/ML VIAL SC ×3 (05:59→21:43)
[2025-03-30 06:02] LABS: Basophils # (Auto) 0.0 Thou/mm3 (0.0-0.2); Basophils % (Auto) 1 % (0-2.5); Eosinophils # (Auto) 0.1 Thou/mm3 (0.0-0.5); Eosinophils % (Auto) 3 % (0-10); Hematocrit 38.5 % (41.0-53.0); Hemoglobin 13.3 g/dL (13.5-16.0); Immature Granulocytes Auto 0.02 Thou/mm3 (0.00-0.00); Lymphocytes # (Auto) 1.3 Thou/mm3 (1.0-4.8); Lymphocytes % (Auto) 33 % (10-50); Mean Corpuscular HGB Conc 34.5 g/dl (31.0-37.0); Mean Corpuscular Hemoglobin 33.3 pg (25.0-35.0); Mean Corpuscular Volume 97 fL (80-100); Monocytes # (Auto) 0.4 Thou/mm3 (0.0-0.8); Monocytes % (Auto) 10 % (0-12); Neutrophils # (Auto) 2.1 Thou/mm3 (1.8-7.7); Neutrophils % (Auto) 54 % (37-80); Nucleated Red Blood Cell # 0.00 Thou/mm3 (0.00-0.00); Nucleated Red Blood Cell % 0 /100 WBC (0); Platelet Count 91 Thou/mm3 (140-440); RDW Standard Deviation 50.4 fL (35.1-43.9); Red Blood Count 3.99 Miln/mm3 (4.50-5.90); White Blood Count 4.0 Thou/mm3 (3.8-10.6)
[2025-03-30 06:24] LABS: Alanine Aminotransferase 52 U/L (10-49); Albumin, Serum 3.1 gm/dL (3.4-4.8); Albumin/Globulin Ratio 1.5 (1.2-2.2); Alkaline Phosphatase 166 U/L (46-116); Anion Gap 9 (7-16); Aspartate Amino Transferase 57 U/L (0-34); BUN/Creatinine Ratio 21 Ratio (12-20); Bilirubin,Total 1.5 mg/dL (0.3-1.2); Blood Urea Nitrogen 19 mg/dL (9-23); Calcium 8.2 mg/dL (8.3-10.6); Calcium (Corrected) 8.9 mg/dL (8.5-10.1); Carbon Dioxide 25.9 mMol/L (20.0-31.0); Chloride 104 mMol/L (98-107); Creatinine (Component) 0.9 mg/dL (0.6-1.3); Estimated Creatinine Clearance 71.9 mL/min (>60); Globulin 2.1 gm/dL (2.3-3.5); Glucose 272 mg/dL (74-106); Magnesium 1.8 mg/dL (1.6-2.6); Osmolality,Calculated 289 (275-295); Phosphorous 3.3 mg/dL (2.4-5.1); Potassium 4.6 mMol/L (3.4-5.1); Sodium 139 mMol/L (136-145); Total Protein 5.2 gm/dL (5.7-8.2); eGFR > 60 See Note
[2025-03-30] MEDS: INSULIN LISPRO (AdmeLOG) 1 UNIT/0.01 ML UNIT SC ×3 (07:54→16:53)
[2025-03-30] MEDS: INSULIN DEGLUDEC 5 UNIT/0.05 ML (PER 5 UNITS) 10 UNIT SC (08:40)
[2025-03-30] MEDS: TAMSULOSIN HCL 0.4 MG CAPSULE PO (08:40)
[2025-03-30] MEDS: Magnesium Sulfate 2 GM Ivpb 2 GM/50 ML BAG IV (08:41)
[2025-03-30] MEDS: HYDROcodone/APAP 5/325 TABLET 1 TAB PO (10:22)
--- NOTE | 2025-03-30 15:19 | ESPR_ITS ---
<Statement entered by Ed Mcclellan MD - 03/30/25 15:38> I have reviewed the note and agree with the resident's assessment & plan with exceptions as below. I have personally reviewed labs, imaging, home meds/prior records, examined the patient, formulated and discussed management plan with my attending Patient was seen and examined at bedside morning. No acute overnight events. Patient working well with physical therapy, still pending insurance authorization after the third night which is likely to happen tomorrow for patient to be approved for halfway facility for further physical therapy Ed Mcclellan PGY2 Disclaimer: Even though this this note was dictated by speech recognition and even though it was carefully revised there may still be minor errors in pyrometer temperature regulator due to voice recognition software. Documentation for date of: 03/30/25 Subjective Subjective Interval history: Patient was seen and examined at bedside today; no acute events overnight. Patient has been working with physical therapy today. Exam Vital Signs Temp Pulse Resp BP Pulse Ox O2 Del Method O2 Flow Rate 98.1 F 89 18 141/72 H 96 Room Air 98 03/30/25 11:43 03/30/25 11:43 03/30/25 11:43 03/30/25 11:43 03/30/25 11:43 03/30/25 11:43 03/29/25 04:00 Narrative Exam General: A/O x3, no acute distress Eyes: PERRL, EOMI. Anicteric, vision grossly intact. Ears: No ear pain, no ear discharge, Hearing grossly intact. Nose: No nasal discharge. Mouth/Throat: Moist mucous membranes, no redness, no lesions. Neck: Neck supple, non-tender, no cervical lymphadenopathy. Lungs: Clear CAROL to auscultation and percussion, No accessory muscle use. Cardio: Normal S1/S2, regular rhythm, no murmurs, no JVD or carotid bruits. Abdomen: Soft, non-tender, no palpable masses, peristalsis present, no guarding or rebound. Extremities: Symmetrical, no significant deformities, no peripheral edema , non- tender, peripheral pulses presents, LLE pain with motion but not on palpation. Skin: No rashes, no lesions, warm to touch. Neuro: No focal neurological deficits. motor and sensory intact Psych: Cooperative, appropriate mood and effect. Objective Labs 03/31/25 04:59 03/31/25 04:59 Labs: Laboratory Results - last 24 hr 03/30/25 05:44 WBC 4.0 RBC 3.99 L Hgb 13.3 L Hct 38.5 L MCV 97 MCH 33.3 MCHC 34.5 RDW Std Deviation 50.4 H Plt Count 91 L Neut % (Auto) 54 Lymph % (Auto) 33 [place] % (Auto) 10 Eos % (Auto) 3 Baso % (Auto) 1 Neut # (Auto) 2.1 Lymph # (Auto) 1.3 [place] # (Auto) 0.4 Eos # (Auto) 0.1 Baso # (Auto) 0.0 Immature Gran # (Auto) 0.02 H Absolute Nucleated RBC 0.00 Immature Gran % 1 H Nucleated RBC % 0 Sodium 139 Potassium 4.6 Chloride 104 Carbon Dioxide 25.9 Anion Gap 9 BUN 19 Creatinine 0.9 Estim Creat Clear Calc 71.9 eGFR > 60 BUN/Creatinine Ratio 21 H Glucose 272 H Calculated Osmolality 289 Calcium 8.2 L Corrected Calcium 8.9 Phosphorus 3.3 Magnesium 1.8 Total Bilirubin 1.5 H AST 57 H ALT 52 H Alkaline Phosphatase 166 H Total Protein 5.2 L Albumin 3.1 L Globulin 2.1 L Albumin/Globulin Ratio 1.5 Quality Measures Quality Measures none Advance care planning discussed with:: other Assessment & Plan Assessment Current Active Medications: Generic Name Dose Route Start Last Admin Trade Name Freq PRN Reason Stop Dose Admin Acetaminophen 650 mg 03/28/25 16:33 Acetaminophen 325 Mg Tablet PO 04/27/25 16:32 Q6H PRN Fever >100.4 and mild pain 1-3 Hydrocodone Bitart/Acetaminophen 1 tab 03/28/25 16:33 03/30/25 10:22 Hydrocodone/Apap 5/325 Tablet PO 04/02/25 16:32 1 tab Q4HR PRN Administration PAIN SCALE 4-6 (Moderate Cyclobenzaprine HCl 5 mg 03/29/25 10:46 Cyclobenzaprine 5 Mg Tablet PO 04/28/25 10:45 TID PRN MUSCLE SPASMS Dextrose 25 ml 03/28/25 16:33 Dextrose 50%-Water Inj 50 Ml Syringe IV 04/27/25 16:32 Q15MIN PRN BG 50-70 responsive npo pt Dextrose 50 ml 03/28/25 16:33 Dextrose 50%-Water Inj 50 Ml Syringe IV 04/27/25 16:32 Q15MIN PRN BG <50 OR BG <70 & pt unresponsive Glucagon 1 mg 03/28/25 16:33 Glucagon Inj 1 Mg Vial IM Q15MIN PRN BG <70, and no IV access Heparin Sodium (Porcine) 5,000 unit 03/28/25 22:00 03/30/25 14:12 Heparin Sod Inj 5000 Unit/Ml Vial SC 04/11/25 21:59 5,000 unit Q8HR IMAN Administration Insulin Degludec 10 unit 03/30/25 09:00 03/30/25 08:40 Insulin Degludec 5 Unit/0.05 Ml (Per 5 Units) SC 04/29/25 08:59 10 unit QDAY IMAN Administration Insulin Human Lispro 0 unit 03/28/25 17:00 03/30/25 12:30 Insulin Lispro (Admelog) 1 Unit/0.01 Ml Unit SC 04/27/25 16:59 3 unit AC IMAN Administration Protocol Morphine Sulfate 2 mg 03/28/25 16:33 Morphine Sulf Inj 4 Mg/Ml Vial IVP 04/02/25 16:32 Q3H PRN PAIN SCALE 7-10 (Severe Ondansetron HCl 4 mg 03/28/25 16:33 Ondansetron Inj 2 Mg/Ml Inj 2 Ml IVP 04/27/25 16:32 Q6H PRN NAUSEA OR VOMITING Protocol Tamsulosin HCl 0.4 mg 03/29/25 15:00 03/30/25 08:40 Tamsulosin Hcl 0.4 Mg Capsule PO 04/28/25 14:59 0.4 mg QDAY IMAN Administration Plan 80-year-old male with past medical history of DM2, MS, cirrhosis, splenomegaly, and IBS was admitted to the hospital on 03/28/2025 for acute nondisplaced pubic fracture s/p mechanical ground-level fall. #Acute nondisplaced pubic fracture #Mechanical ground-level fall Patient came in due to a ground-level fall yesterday and inability to bear weight on the left lower extremity. Hip x-ray and hip CT confirmed nondisplaced left superior and inferior pubic rami fracture. Orthopedic surgeon stated no need for surgery or abdominal binder at this time only PT Plan: Pain medications with Tylenol, [place], cyclobenzaprine, and morphine PT consulted, thank you for recommendations-rehab for skilled therapy services to achieve highest level of functional mobility; patient currently has decline in bed mobility transfers and ambulation and is currently a high fall risk Patient currently working with PT Patient will need SNF upon discharge #T2DM A1c 9.6; 03/30/25 glucose 272 Plan: Insulin degludec 10 and ISS Carb consistent diet and lactose-free #Cirrhosis #Splenomegaly Plan: Monitor CBC #IBS Plan: F/u outpatient Disposition: Med-Surg DVT prophylaxis: Heparin 5000 subcu every 8 hours GI prophylaxis: Diet: Carbohydrate consistent and lactose-free Lines: PIV CODE STATUS: DNR This case was discussed with my attending physician, Dr. Esparza, and senior resident, Dr. Bentley. Golden De Paz MD-PhD, PGY1 Attending Provider Attestation/Addendum I, Shakira Esparza DO, attest that I was physically present for the andrews portions of the service and evaluated the patient with the resident and I reviewed and discussed the case with the resident and agree with the resident's findings and plans of care as documented above Patient seen and eval this a.m. He was able to stand and walk to the door of his room with physical therapy and a walker. Patient did endorse having a lot of pain following physical therapy. He is otherwise stable and has no acute complaints at this time. Anticipate discharge within the next 24 hours to halfway facility. He reports some pain in his left hip which she describes as a muscle ache. However, he has more pain in his pubic region following physical therapy, but is well-controlled with [place].
[2025-03-31] VITALS: BP 122/62; PULSE 78; RESP 18; TEMP 36.8; O2SAT 93
[2025-03-31] MEDS: HYDROcodone/APAP 5/325 TABLET 1 TAB PO ×3 (00:47→17:02)
[2025-03-31 03:33] VITALS: PULSE 71; RESP 18; RESP 94
[2025-03-31 04:00] VITALS: BP 115/60; PULSE 74; RESP 19; TEMP 36.9; O2SAT 92
[2025-03-31] MEDS: HEPARIN SOD INJ 5000 UNIT/ML VIAL SC ×2 (06:02→14:03)
[2025-03-31 06:13] LABS: Basophils # (Auto) 0.0 Thou/mm3 (0.0-0.2); Basophils % (Auto) 1 % (0-2.5); Eosinophils # (Auto) 0.2 Thou/mm3 (0.0-0.5); Eosinophils % (Auto) 5 % (0-10); Hematocrit 37.9 % (41.0-53.0); Hemoglobin 13.0 g/dL (13.5-16.0); Immature Granulocytes Auto 0.02 Thou/mm3 (0.00-0.00); Lymphocytes # (Auto) 1.0 Thou/mm3 (1.0-4.8); Lymphocytes % (Auto) 28 % (10-50); Mean Corpuscular HGB Conc 34.3 g/dl (31.0-37.0); Mean Corpuscular Hemoglobin 33.2 pg (25.0-35.0); Mean Corpuscular Volume 97 fL (80-100); Monocytes # (Auto) 0.4 Thou/mm3 (0.0-0.8); Monocytes % (Auto) 10 % (0-12); Neutrophils # (Auto) 2.0 Thou/mm3 (1.8-7.7); Neutrophils % (Auto) 55 % (37-80); Nucleated Red Blood Cell # 0.00 Thou/mm3 (0.00-0.00); Nucleated Red Blood Cell % 0 /100 WBC (0); Platelet Count 90 Thou/mm3 (140-440); RDW Standard Deviation 50.1 fL (35.1-43.9); Red Blood Count 3.92 Miln/mm3 (4.50-5.90); White Blood Count 3.7 Thou/mm3 (3.8-10.6)
[2025-03-31 06:30] LABS: Alanine Aminotransferase 50 U/L (10-49); Albumin, Serum 3.0 gm/dL (3.4-4.8); Albumin/Globulin Ratio 1.4 (1.2-2.2); Alkaline Phosphatase 159 U/L (46-116); Anion Gap 11 (7-16); Aspartate Amino Transferase 59 U/L (0-34); BUN/Creatinine Ratio 26 Ratio (12-20); Bilirubin,Total 1.5 mg/dL (0.3-1.2); Blood Urea Nitrogen 18 mg/dL (9-23); Calcium 8.3 mg/dL (8.3-10.6); Calcium (Corrected) 9.1 mg/dL (8.5-10.1); Carbon Dioxide 23.3 mMol/L (20.0-31.0); Chloride 103 mMol/L (98-107); Creatinine (Component) 0.7 mg/dL (0.6-1.3); Estimated Creatinine Clearance 92.4 mL/min (>60); Globulin 2.2 gm/dL (2.3-3.5); Glucose 241 mg/dL (74-106); Magnesium 1.7 mg/dL (1.6-2.6); Osmolality,Calculated 283 (275-295); Phosphorous 3.3 mg/dL (2.4-5.1); Potassium 4.3 mMol/L (3.4-5.1); Sodium 137 mMol/L (136-145); Total Protein 5.2 gm/dL (5.7-8.2); eGFR > 60 See Note
[2025-03-31 08:00] VITALS: BP 127/66; PULSE 71; RESP 17; TEMP 36.4; O2SAT 93
[2025-03-31] MEDS: INSULIN LISPRO (AdmeLOG) 1 UNIT/0.01 ML UNIT SC ×2 (08:06→11:45)
[2025-03-31] MEDS: INSULIN DEGLUDEC 5 UNIT/0.05 ML (PER 5 UNITS) 10 UNIT SC (08:07)
[2025-03-31] MEDS: TAMSULOSIN HCL 0.4 MG CAPSULE PO (08:07)
--- NOTE | 2025-03-31 09:24 | PC.SS ---
SS follow up note; SS set up transportation for patient via Ambulance due to patient not having [facility] transport. ETA is set for 5PM. SS made patient, Nurse, Lucila and Jayda from [employer] [facility] aware.
--- NOTE | 2025-03-31 09:53 | ESDS_ITS ---
Planned Discharge Date 03/31/25 DS: Providers Provider Date of admission: 03/28/25 17:11 Primary care physician: MARINE Yo Admitting Provider: Shakira Esparza DO Attending Provider on Admission: Shakira Esparza DO Consults: 03/28/25 15:37 Consult to Orthopedic Stat Comment: Consulting Provider: Fidel Jaeger 03/28/25 16:37 Referral Physical Therapy Routine Comment: Physician Instructions: Attending Provider on DC: Shakira Esparza DO Discharging Provider: Shakira Esparza DO Diagnosis Problem List Completed Was Problem List Reviewed/Reconciled?: Yes Hospital Course - Hospitalist Hospital Course Hospital course: Patient is an 80-year-old male with past medical history of type 2 diabetes, multiple sclerosis in remission, IBS, cirrhosis and splenomegaly who was brought to the ED after sustaining a ground-level fall day prior to presentation. Patient had tripped at his door onto the floor and landed on his left side of the hip. Patient was unable to get up and was subsequently brought to the ED due to persistent pain. In the ED, patient was noted to have a nondisplaced fracture of the left superior inferior pubic rami on hip/pelvis x-ray, confirmed by CT of the hip. Orthopedic surgery was called from ED and does not recommend any surgical intervention on her abdominal binder. However, patient would need physical therapy and likely retirement facility for further rehabilitation. Patient was subsequently admitted for pain control due to acute nondisplaced pubic fracture following mechanical ground-level fall. Pain has since been well-controlled with [place] every 4 hours as needed. Patient complains of some muscle aches and has been given cyclobenzaprine 5 mg p.o. 3 times daily as needed. Patient has been working well with physical therapy and continue with physical therapy at retirement facility. Patient has been stable and afebrile. Patient can be discharged to retirement facility. Will continue with oral pain control and patient can follow-up with his PCP within 1 week of discharge. Patient is also to follow-up with orthopedic surgery outpatient. Time Spent with Patient Time attestation: Total time spent providing and/or coordinating discharge services: Greater than 30 minutes. Time spent: Greater than 30 minutes Discharge Results Labs Diagrams: 03/31/25 04:59 03/31/25 04:59 Labs: Short CBC 03/31/25 Range/Units 04:59 WBC 3.7 L (3.8-10.6) Thou/mm3 Hgb 13.0 L (13.5-16.0) g/dL Hct 37.9 L (41.0-53.0) % Plt Count 90 L (140-440) Thou/mm3 BMP 03/31/25 04:59 Sodium 137 Potassium 4.3 Chloride 103 Carbon Dioxide 23.3 BUN 18 Creatinine 0.7 Glucose 241 H Calcium 8.3 Liver Function 03/31/25 Range/Units 04:59 Total Bilirubin 1.5 H (0.3-1.2) mg/dL AST 59 H (0-34) U/L ALT 50 H (10-49) U/L Alkaline Phosphatase 159 H (46-116) U/L Albumin 3.0 L (3.4-4.8) gm/dL Exam Vital Signs Temp Pulse Resp BP Pulse Ox O2 Del Method O2 Flow Rate 97.6 F 71 17 127/66 93 L Room Air 98 03/31/25 08:00 03/31/25 08:00 03/31/25 08:00 03/31/25 08:00 03/31/25 08:00 03/31/25 08:00 03/29/25 04:00 Narrative Gen: No acute distress HEENT: NCAT, PERRLOU, Sclera anicteric, conjunctiva noninjected, oral mucosa moist without erythema Neck: Supple, full range of motion, no LAD CV: RRR, no murmurs, rubs or gallops Resp: CTAB/L, no wheezing, rhonchi or rales GI: abdomen soft, bowel sounds noted, no tenderness to palpation, no guarding or rebound tenderness, no organomegaly Skin: clean, dry, no rashes, lesions or ecchymosis Ext: pain on palpation of left hip, no ecchymosis noted, no clubbing, cyanosis, or edema Neuro: A&O x3, CN II- XII intact b/l, no focal neurological deficits Discharge Plan Plan Patient Disposition: Xfer Skilled Nsg Fac (SNF) Patient condition on transfer: Stable Prescriptions/Referrals Prescriptions/Med Rec: New hydrocodone-acetaminophen 5-325 mg Tablet 1 tab PO Q6H MDD 4 PRN (Reason: Pain Scale 4-6 (Moderate) 7 Days Qty: 20 0RF insulin lispro 100 unit/mL Solution 0 unit SCi AC 1 Days Qty: 1 0RF cyclobenzaprine 5 mg Tablet 5 mg PO TID PRN (Reason: Muscle Spasms) Qty: 14 0RF aspirin 81 mg tablet 81 mg PO BID 30 Days Qty: 60 0RF Continued Trulicity 1.5 mg/0.5 mL pen injector 1.5 mg subcut .weekly Patient Comments: ADMINISTER 1.5 MG UNDER THE SKIN EVERY WEEK tamsulosin [Flomax] 0.4 mg capsule 0.4 mg PO QDAY Qty: 30 1RF Referrals: Jeane Hahn FNP [Primary Care Provider] Patient/Caregiver Discharge Instructions Other Discharge Activity Instructions:: Please follow up with PCP within 1 week of discharge and orthopedic surgery Aspirin 81 mg twice a day has been ordered for prevention of blood clots Print Language: Portuguese Stand Alone Forms: Sandra Award Info., Patient Portal Info Letter Discharge Order Discharge Orders: Discharge (Routine); Ordered 03/31/25 Ordered By: Shakira Esparza Quality Discharge Quality Measures VTE prophylaxis (aspirin 81 mg PO BID)
[2025-03-31 12:00] VITALS: BP 120/73; PULSE 85; RESP 17; TEMP 36.6; O2SAT 96
[2025-03-31 16:00] VITALS: BP 126/64; PULSE 81; RESP 17; TEMP 36.8; O2SAT 96
== END 2025-03-31 17:08 | disposition skilled nursing facility (03) | DRG 536 ==
LOC: SERX 15:55 → SERHOLD 18:27 → S3NX 03-29 06:04
PROVIDERS: Nurse Practitioner Family; Admitting Provider Internal Medicine; Emergency Provider Family Medicine; PCP Nurse Practitioner Family; Visit Provider Internal Medicine
DX: S32.592A Other specified fracture of left pubis, initial encounter for closed fracture (principal); W01.0XXA Fall on same level from slipping, tripping and stumbling without subsequent striking against object, initial encounter; E11.9 Type 2 diabetes mellitus without complications; G35.D Multiple sclerosis, unspecified; K74.60 Unspecified cirrhosis of liver; R16.1 Splenomegaly, not elsewhere classified; K58.9 Irritable bowel syndrome, unspecified; Z60.2 Problems related to living alone; R74.01 Elevation of levels of liver transaminase levels; Z66 Do not resuscitate; Z79.4 Long term (current) use of insulin; Z79.84 Long term (current) use of oral hypoglycemic drugs; Z91.81 History of falling
CPT/HCPCS: 36415; 73502; 73700; 80053; 83036; 83735; 84100; 85025; 85610; 85730; 96372; 97163; 99284; J1644; J1815; J1885; J3475; A9270